=== PATIENT | male | born 1970 | race Two or more races ===

== ENCOUNTER 2018-06-12 16:23 | Emergency (ER) | payer OTHER ==
[2018-06-12 16:29] VITALS: BP 119/88; PULSE 69; TEMP 97.5; BMI 32.5
--- NOTE | 2018-06-12 17:07 | PDOC ---
History of Present Illness - General Chief Complaint: Respiratory Stated Complaint: COLD SYMPTOMS Time Seen by Provider: 06/12/18 16:33 History Source: Patient Exam Limitations: No Limitations Past History - Past Medical History Allergies/Adverse Reactions: Allergies Allergy/AdvReac Type Severity Reaction Status Date / Time Penicillins Allergy Verified 06/12/18 16:29 Home Medications: Ambulatory Orders Buspirone HCl [Buspar -] 10 mg PO TID 06/12/18 Fluticasone Prop 0.05% Nasal [Flonase -] 1 - 2 spray NS BID #1 spray.pump Methadone [Dolophine -] 10 mg PO DAILY 06/12/18 Zolpidem Tartrate [Ambien] 10 mg PO HS 06/12/18 Asthma: Yes COPD: No Liver Disease: Yes - Suicide/Smoking/Psychosocial Hx Smoking Status: Yes Smoking History: Never smoked Have you smoked in the past 12 months: Yes Number of Cigarettes Smoked Daily: 7 'Breaking Loose' booklet given: 12/01/12 *Physical Exam - Vital Signs Last Vital Signs Temp Pulse Resp BP Pulse Ox 97.5 F L 69 18 119/88 100 06/12/18 16:24 06/12/18 16:24 06/12/18 16:24 06/12/18 16:24 06/12/18 16:24 - Physical Exam General Appearance: No: Apparent Distress HEENT: positive: Nasal Congestion. negative: Muffled/Hoarse voice, Pharyngeal Erythema, Tonsillar Exudate, Tonsillar Erythema, Rhinorrhea, Sinus Tenderness Respiratory/Chest: positive: Lungs Clear, Normal Breath Sounds. negative: Respiratory Distress Cardiovascular: positive: Regular Rhythm, Regular Rate, S1, S2. negative: Murmur Gastrointestinal/Abdominal: positive: Normal Bowel Sounds, Soft. negative: Tender, Distended, Guarding, Rebound Integumentary: positive: Normal Color Neurologic: positive: Alert, Normal Mood/Affect ED Treatment Course - RADIOLOGY Radiology Studies Ordered: Category Date Time Status CHEST PA & LAT [RAD] Stat Radiology 06/12/18 16:51 Ordered Medical Decision Making - Medical Decision Making 48 y/o M smoker with hx of asthma, HTN, hepatitis C presents with feeling sick x 14 days. Mentions having nasal congestion, sore throat, body aches and productive cough. Saw his doctor last week and was given Prednisone and Azithromycin, which he finished, but is not feeling any better. Also mentions having some watery diarrhea x 2 days. Denies fever, sob, cp, abd pain, vomiting , recent travel, sick contacts. Did not take any antipyretics today ?viral URI, consider PNA Plan: CXR 06/12/18 17:06 CXR negative Patient appears well, stable for dc 06/12/18 18:05 *DC/Admit/Observation/Transfer Diagnosis at time of Disposition: URI (upper respiratory infection) Qualifiers: URI type: unspecified viral URI Qualified Code(s): J06.9 - Acute upper respiratory infection, unspecified - Discharge Dispostion Disposition: HOME Condition at time of disposition: Stable Decision to Admit order: No - Prescriptions Prescriptions: Fluticasone Prop 0.05% Nasal [Flonase -] 1 - 2 spray NS BID #1 spray.pump - Referrals Referrals: Arnol De La Cruz MD [Primary Care Provider] - 2 Days - Patient Instructions Printed Discharge Instructions: DI for Viral Upper Respiratory Infection -- Adult Additional Instructions: Thank you for choosing [facility]. It was a pleasure taking care of you. Your chest xray was negative You were prescribed Flonase for nasal congestion for 1 week Also use Nedi-Pot twice a day to help with congestion Return to the Emergency Department if your symptoms worsen or persist or have other concerning symptoms. - Post Discharge Activity
== END 2018-06-12 18:16 | disposition home or self-care (01) ==
LOC: JERFT 16:23
DX: J06.9 Acute upper respiratory infection, unspecified (principal); B97.89 Other viral agents as the cause of diseases classified elsewhere
CPT/HCPCS: 71046-TC-FY; 99281-25

== ENCOUNTER 2021-01-13 10:15 | Emergency (ER) | payer OTHER ==
[2021-01-13 10:24] VITALS: BP 108/78; PULSE 79; TEMP 97.6; BMI 32.5
[2021-01-13] MEDS ORDERED: KETOROLAC TROMETHAMINE 60 MG/2 ML VIAL IM ONE (11:26)
[2021-01-13] MEDS ORDERED: KETOROLAC TROMETHAMINE 60 MG/2 ML VIAL ONE (11:31)
== END 2021-01-13 12:40 | disposition home or self-care (01) ==
LOC: JER 10:15
PROC: 3E0233Z Introduction of Anti-inflammatory into Muscle, Percutaneous Approach (ICD-10-PCS; principal; 2021-01-13)
DX: M79.604 Pain in right leg (principal)
CPT/HCPCS: 96372; 99284-25